=== PATIENT | male | born 1995 | race Two or more races ===

== ENCOUNTER → 2023-04-10 | Emergency (ER) | payer OTHER ==
[~2023-04-10] VITALS: Ht 162.6 cm; Wt 56.2 kg
== END | disposition home or self-care (01) ==
LOC: ER 12:59
DX: H10.33 Unspecified acute conjunctivitis, bilateral (principal); Z88.6 Allergy status to analgesic agent

== ENCOUNTER → 2024-08-10 | Emergency (ER) | payer OTHER ==
[~2024-08-10] VITALS: Ht 162.6 cm; Wt 58.1 kg
[2024-08-10 08:49] LABS: HEMATOCRIT 43.5 % (39.0-48.0); HEMOGLOBIN 14.8 g/dL (13-16.00); MEAN CELL VOLUME 89.4 fL (80.0-100.00); MEAN CORPUSCULAR HEMOGLOBIN 30.4 pg (27.00-32.0); MEAN CORPUSCULAR HGB CONC 34.1 g/dl (32.0-36.0); PLATELET COUNT 267 K/uL (150-450); RED BLOOD COUNT 4.87 M/uL (4.00-6.00); RED CELL DISTRIBUTION WIDTH 12.4 % (11.5-14.5)
[2024-08-10 08:57] LABS: COVID-19 AG POSITIVE (NEGATIVE)
[2024-08-10 09:09] LABS: INFLUENZA A AG NEGATIVE (NEGATIVE)
== END | disposition home or self-care (01) ==
LOC: ER 08:12
DX: U07.1 COVID-19 (principal); Z88.6 Allergy status to analgesic agent